=== PATIENT | male | born 1950 | race Caucasian/White ===

== ENCOUNTER → 2016-10-07 | Outpatient (CLI) | payer BC | END | disposition home or self-care (01) | LOC: LABWHC1 09:36 | PROVIDERS: ATTEND Radiology Radiation Oncology | DX: C61 Malignant neoplasm of prostate (principal) | CPT/HCPCS: 36415; 84153 ==

== ENCOUNTER → 2016-11-07 | Outpatient (CLI) | payer BC ==
--- NOTE | 2016-11-07 12:35 | CONS ---
DATE OF CONSULTATION: 11/07/2016 CONSULTATION/NEW PATIENT EVALUATION: A 65-year-old gentleman who has been evaluated in the Sleep Center for obstructive sleep apnea-hypopnea syndrome. HISTORY OF PRESENT ILLNESS/SLEEP-WAKE EVALUATION: Patient has history of obstructive sleep apnea for about 15 years. He is using his BiPAP treatment every night for the whole night. Last test was done around 4 years ago. SLEEP SCHEDULE: At the present time, his sleep schedule from around 10 p.m. until 7 a.m. FALLING ASLEEP: Usually no problem with the falling asleep. DURING SLEEP: According to his , even while he is using machine at night, he has snoring and possible episodes of stopped breathing during sleep. He usually wakes up at 5 during the night, presently he does not need to go to the bathroom at night. Patient has sometimes kicking during the sleep according to his . DURING THE DAY/WAKE STATE: In the morning, patient wakes up tired, falling asleep during the day. [place] Sleepiness Scale significantly increased to 15. PAST MEDICAL HISTORY: Positive for prostate CA treated by radiation and then by radiation implants in June of 2016, hypertension, acid reflux, hyperlipidemia, restless leg syndrome, hypothyroidism. PAST SURGICAL HISTORY: Tonsillectomy, right knee endoscopic surgery, insertion of radioactive implants to prostate. MEDICATIONS: Citalopram, levothyroxine, Nexium, Ecotrin, vitamin B12, lisinopril, atorvastatin, potassium supplement. SOCIAL HISTORY: Negative for smoking, alcohol consumption, a glass of wine with dinner. REVIEW OF SYSTEMS: Snoring, awakenings from sleep, sleepiness during the day even while using his BiPAP equipment. FAMILY HISTORY: Hypertension, heart problems, hyperlipidemia, stroke, tracheobronchitis, sleep apnea, snoring, cancer, acid reflux, thyroid problems, restless legs. PHYSICAL EXAM: A pleasant 65-year-old gentleman without distress. BP 168/79, HR 94, RR 16. Height 5, 10. Weight 266. BMI 38.1. Neck 17-1/2 inches in circumference. Temperature 98.7. Oxygen saturation at room air 96%. Oropharynx extremely low position of soft palate, retrognathic 1 to 2 mm. ABDOMEN: Obese. EXTREMITIES: ( ) IMPRESSION: 1. Obstructive sleep apnea-hypopnea syndrome for 15 years, presently on treatment with BiPAP but has snoring, witnessed episodes of stopped breathing and awakenings from sleep and sleepiness. 2. Low position of soft palate, retrognathic. 3. Obesity, body mass index of 38.1. 4. Hypertension. 5. Swelling of the legs. 6. Hyperlipidemia. 7. History of prostate cancer. 8. Status post radiation therapy for prostate cancer, with external beam and with implants. 9. Status post right knee surgery. 10. Status post tonsillectomy. 11. History of restless leg syndrome. 12. Positive history of kicking at night, positive Periodic limb movement syndrome. 13. Hypothyroidism, on treatment with thyroxin supplement. PLAN: 1. CPAP, BiPAP retitration for evaluation of obstructive pressure at the present time. 2. Losing weight. 3. Sleep hygiene with regular time in bed for at least 8 hours. 4. No driving if feeling any sleepiness. 5. Losing weight. Thank you very much for referring this patient for consultation. Sincerely, Luís Hernandez MD, PhD, FAASM. Diplomat of [place] Board [employer] Medicine, Sleep Medicine Board by [place] Board [employer] Specialities [employer] Board of Internal Medicine Dividend Deposit Entry Clerk of [facility] [place]
== END | disposition home or self-care (01) ==
LOC: SLEEP 10:49
PROVIDERS: ATTEND Internal Medicine
DX: G47.33 Obstructive sleep apnea (adult) (pediatric) (principal); E66.9 Obesity, unspecified; I10 Essential (primary) hypertension; E78.5 Hyperlipidemia, unspecified; Z68.38 Body mass index [BMI] 38.0-38.9, adult; Z79.899 Other long term (current) drug therapy
CPT/HCPCS: 99211

== ENCOUNTER → 2016-12-30 | Outpatient (CLI) | payer BC | END | disposition home or self-care (01) | LOC: LABWHC1 10:03 | PROVIDERS: ATTEND Radiology Radiation Oncology | DX: C61 Malignant neoplasm of prostate (principal) | CPT/HCPCS: 36415; 84153 ==

== ENCOUNTER → 2017-02-20 | Outpatient (CLI) | payer BC ==
--- NOTE | 2017-02-20 21:44 | PN ---
DATE OF SERVICE: 02/20/2017 This patient is a 66-year-old gentleman who has been followed in the sleep center for treatment of obstructive sleep apnea/hypopnea syndrome. Recently the patient had a diagnostic sleep study and titration, and I discussed the results of his sleep tests with him and his family in detail. The patient was started on treatment with BiPAP in [employer] regimen and he feels better with the machine. He complains, although, that with his full-face mask he sometimes has a leak in the area above the nose to the eyes. [place] Sleepiness Scale is 3. I checked his machine. Usage is 30 out of 30 nights for more than 4 hours. Leak is 20 L/minute, which is acceptable. Apnea/hypopnea index reading from the machine, though, is 11.7. MEDICATIONS: 1. Citalopram. 2. Levothyroxine. 3. Nexium. 4. Ecotrin. 5. Vitamin B12. 6. Lisinopril. 7. Atorvastatin. 8. Potassium supplement. PHYSICAL EXAM: The patient is a pleasant 66-year-old gentleman without distress. VITAL SIGNS: Blood pressure 139/67, heart rate 94, respiratory rate 16. Weight 270. Temperature 98.4. Oxygen saturation at room air 95%. GENERAL: A pleasant patient without distress. HEENT: PERRLA. EOMI. Evaluation of oropharynx showed tongue protrudes midline. Low position of soft palate. NECK: Supple. No JVD. Thyroid is not palpable. LUNGS: Clear to percussion and to auscultation. Good air exchange. No wheezing or rhonchi. HEART: S1, S2 regular. No murmurs, gallops or rubs. ABDOMEN: Obese. EXTREMITIES: No clubbing or cyanosis. QUALITY CONTROL OPERATOR: Awake, alert and oriented x3. Cranial nerves 2 through 7 are intact. There is no fasciculation or atrophy noted. No focal deficits observed. IMPRESSION: 1. Severe obstructive sleep apnea/hypopnea syndrome; apnea/hypopnea index 66.7 with oxygen desaturation to 74% by results of home sleep apnea test, improved with treatment with positive air pressure. Apnea/hypopnea index reduced to 11.7. Patient feels better, but he has some leak from the mask. Compliance with treatment 100%. Benefitting from treatment. 2. Obesity. 3. Hypertension. 4. Hyperlipidemia. 5. History of prostate carcinoma. 6. History of restless legs. 7. Mild PLMS. PLAN: 1. Patient was fitted with AmaraView mask. He likes it. I signed a prescription for this type of mask. 2. Continue to use PAP equipment every night for the whole night. 3. Losing weight. 4. Preferable position during sleep is on the side. 5. No driving if feeling any sleepiness. 6. Follow-up visit in about 2 months to evaluate clinical response on these changes of the mask and to check AHI. Thank you very much for allowing me to participate in the management of your patient. Sincerely, Luís Hernandez. , PhD, FAASM. Diplomat of [place] Board [employer] Medicine, Sleep Medicine Board by [employer] [employer] Specialities [employer] Board of Internal Medicine Credit Risk Analytics Manager of [facility] [place] [facility]
== END | disposition home or self-care (01) ==
LOC: SLEEP 13:21
PROVIDERS: ATTEND Internal Medicine
DX: G47.33 Obstructive sleep apnea (adult) (pediatric) (principal); E66.9 Obesity, unspecified; I10 Essential (primary) hypertension; E78.5 Hyperlipidemia, unspecified; G47.61 Periodic limb movement disorder; Z85.46 Personal history of malignant neoplasm of prostate

== ENCOUNTER → 2017-05-05 | Outpatient (CLI) | payer BC | END | disposition home or self-care (01) | LOC: LABWHC1 09:36 | PROVIDERS: ATTEND Radiology Radiation Oncology | DX: C61 Malignant neoplasm of prostate (principal) | CPT/HCPCS: 36415; 84153 ==

== ENCOUNTER 2017-08-05 08:11 | Day surgery (SDC) | payer BC ==
[2017-08-04 08:57] VITALS: BMI 35.7
[~2017-08-05 08:11] MED LIST: LACTATED RINGERS 1,000 ML IV SCH; LIDOCAINE 1% 20 ML VIAL (10MG/ML) FOR IV START INTRADERMA PRN
[2017-08-05 08:43] VITALS: TEMP 97.9
[2017-08-05] MEDS ORDERED: PROPOFOL 10 MG/ML 20 ML VIAL IV ONE (09:01)
[2017-08-05] MEDS ORDERED: LIDOCAINE 1% INJ 10MG/ML (20 ML MDV) ONE (09:01)
--- NOTE | 2017-08-05 09:05 | P.GSHP ---
History of Present Illness H&P Date: 08/05/17 Chief Complaint: GERD, screening colonoscopy Assistants 66-year-old male referred from Dr. Bear Duncan. Patient presents today for EGD and colonoscopy. He's had history is GERD with Rao's esophagitis. Past Medical History Past Medical History: Cancer, GERD/Reflux, Hyperlipidemia, Hypertension, Sleep Apnea/CPAP/BIPAP, Thyroid Disorder Additional Past Medical History / Comment(s): BI-PAP MACHINE, BARRETTS ESOPHAGUS , HERNIATED DISC WITH OCCASIONAL SCIATICA, HYPOTHYROID, PROSTATE CANCER WITH RADIATION [place] (JUN 2016)., STATES PROSTATE STILL ENLARGED. History of Any Multi-Drug Resistant Organisms: None Reported Past Surgical History: Adenoidectomy, Tonsillectomy Additional Past Surgical History / Comment(s): PROSTATE BRACHYTHERAPY Past Anesthesia/Blood Transfusion Reactions: No Reported Reaction, Motion Sickness Past Psychological History: Anxiety Smoking Status: Never smoker Past Alcohol Use History: Daily Additional Past Alcohol Use History / Comment(s): 2 GLASSES OF WINE DAILY Past Drug Use History: None Reported - Past Family History Mother Family Medical History: No Reported History Medications and Allergies Home Medications Medication Instructions Recorded Confirmed Type Aspirin EC [Ecotrin] 81 mg PO DAILY 10/15/15 08/04/17 History Atorvastatin [Lipitor] 10 mg PO W/SUPPER 10/15/15 08/04/17 History Citalopram Hydrobromide [CeleXA] 20 mg PO W/SUPPER 10/15/15 08/04/17 History Cyanocobalamin [Vitamin B-12] 500 mcg PO W/SUPPER 10/15/15 08/04/17 History Esomeprazole Magnesium [NexIUM] 40 mg PO W/SUPPER 10/15/15 08/04/17 History Levothyroxine Sodium [Synthroid] 88 mcg PO W/SUPPER 10/15/15 08/04/17 History Lisinopril [Prinivil] 10 mg PO W/SUPPER 10/15/15 08/05/17 History Allergies Allergy/AdvReac Type Severity Reaction Status Date / Time No Known Allergies Allergy Verified 08/04/17 08:46 Surgical - Exam Vital Signs Temp Pulse Resp BP Pulse Ox 97.9 F 85 18 163/95 96 08/05/17 08:40 08/05/17 08:40 08/05/17 08:40 08/05/17 08:40 08/05/17 08:40 - General well developed, no distress - Eyes PERRL - ENT normal pinna - Neck no masses - Respiratory normal expansion - Cardiovascular Rhythm: regular - Abdomen Abdomen: soft, non tender Assessment and Plan Assessment: GERD. We'll perform EGD. We'll also perform screening colonoscopy.
[2017-08-05 09:33] VITALS: RESP 14
--- NOTE | 2017-08-05 09:34 | P.OP ---
Date of Procedure: 08/05/17 Preoperative Diagnosis: GERD Screening colonoscopy Postoperative Diagnosis: Antral gastritis Small sliding hiatal hernia Mild esophagitis Sigmoid colon polyp Diverticulosis Transverse colon polyp Procedure(s) Performed: EGD Colonoscopy Anesthesia: MAC Surgeon: Willie Grady Pathology: other (Antrum, esophagus, sigmoid colon polyp, transverse colon polyp ) Condition: stable Disposition: PACU Description of Procedure: The patient's placed on the endoscopy table in the lateral position. He received IV sedation. The gastroscope placed oropharynx and passed into the esophagus into the wound. The scope was then placed through the pylorus. The first second portion of the duodenum appeared normal. Scope was then brought back the antrum and this appeared mildly inflamed. A biopsies was performed. Scope was unretroflexed and remainder of the stomach appeared normal. There was a small hiatal hernia. The GE junction was at 38 cm. The distal esophagus appeared mildly inflamed a biopsy performed. The proximal esophagus appeared normal. The scope was withdrawn for patient. Next digital rectal exam was performed which revealed no arthralgias. The flexible colonoscope was then placed patient anus passed throughout the entire colon. The ileocecal valve was visualized. The cecum, ascending colon appeared normal. In the transverse colon or significant diverticular changes. There was a small polyp seen was removed the cold forcep. Scope was then withdrawn in the descending colon had extensive diverticular changes. In the sigmoid colon there is peduncular polyp and this is removed with snare. Scope was then brought back the rectum and this appeared normal. Scope was withdrawn for patient.
[2017-08-05 10:23] VITALS: BP 135/92; PULSE 77
== END 2017-08-05 10:23 | disposition home or self-care (01) ==
LOC: ORWHC2ENDO 08:11
PROVIDERS: ATTEND Surgery
DX: Z12.11 Encounter for screening for malignant neoplasm of colon (principal); K29.50 Unspecified chronic gastritis without bleeding; D12.5 Benign neoplasm of sigmoid colon; K63.5 Polyp of colon; K44.9 Diaphragmatic hernia without obstruction or gangrene; K57.30 Diverticulosis of large intestine without perforation or abscess without bleeding; K22.70 Barrett's esophagus without dysplasia; K21.9 Gastro-esophageal reflux disease without esophagitis; I10 Essential (primary) hypertension; E78.5 Hyperlipidemia, unspecified; E03.9 Hypothyroidism, unspecified; G47.33 Obstructive sleep apnea (adult) (pediatric); Z99.89 Dependence on other enabling machines and devices; Z85.46 Personal history of malignant neoplasm of prostate; Z92.3 Personal history of irradiation; N40.0 Benign prostatic hyperplasia without lower urinary tract symptoms; F41.9 Anxiety disorder, unspecified; Z79.82 Long term (current) use of aspirin; Z79.899 Other long term (current) drug therapy
CPT/HCPCS: 88305; 88342; 45380; 45385; 43239; J2001; J2704

== ENCOUNTER → 2017-09-15 | Outpatient (CLI) | payer BC | END | disposition home or self-care (01) | LOC: LABWHC1 09:37 | PROVIDERS: ATTEND Radiology Radiation Oncology | DX: C61 Malignant neoplasm of prostate (principal) | CPT/HCPCS: 36415; 84153 ==

== ENCOUNTER → 2017-11-13 | Outpatient (CLI) | payer BC ==
--- NOTE | 2017-11-13 16:46 | SFUN ---
SLEEP CENTER FOLLOW UP NOTE DATE OF SERVICE: 11/13/2017. 66-year-old gentleman has been followed in Sleep Center for treatment of obstructive sleep apnea-hypopnea syndrome. The patient continues successfully to use his BiPAP equipment and sleeps with that for the whole night without snoring. [place] Sleepiness Scale today is only 4. I checked his BiPAP unit. He is on automatic regimen. The minimal expiratory pressure 7, maximal inspiratory pressure 24 with pressure support of 4, most of the time pressure in the range of 21/17 with this regimen. Leak is up to 20 L/minute which is acceptable. Apnea-hypopnea index is only 4.3, which is totally normal. On one of the previous visits, it was in the range of 11.7 before I adjusted his machine and he is using equipment 100% of the night for more than 4 hours, average 8.5 hours. MEDICATIONS: Citalopram, levothyroxine, Nexium, Ecotrin, lisinopril, atorvastatin, vitamin B12, potassium supplement. PHYSICAL EXAM: GENERAL Patient in no distress. VITAL SIGNS BP 139/64, HR 74, RR 16, height 5 feet 10 inches, weight 264, BMI 37.8, temperature 98.4, oxygen saturation room air 95%. HEENT PERRLA, EOMI, evaluation of oropharynx showed low position of soft palate. NECK Supple, no JVD. Thyroid is not palpable. LUNGS Clear to percussion and to auscultation. Good air exchange. No wheezing or rhonchi. HEART S1, S2 regular. No murmurs, gallops, or rubs. ABDOMEN Obese. Soft and nontender. Bowel sounds are present. No organomegaly appreciated. EXTREMITIES No clubbing or cyanosis. IMPORTER EXPORTER Awake, alert, and oriented X3. Cranial nerves 2 to 7 intact. There is no fasciculation or atrophy. noted. No focal deficits observed. IMPRESSION: 1. Severe obstructive sleep apnea-hypopnea syndrome; apnea-hypopnea index 66.7 with O2 desaturation to 74% on control with BiPAP. The patient demonstrated 100% compliance with treatment benefitting with treatment. 2. Hypertension. 3. Obesity. 4. History of swelling of the legs. 5. Hyperlipidemia. 6. History of prostate carcinoma. 7. History of restless legs. No any significant problems now. 8. Mild periodic limb movements by results of sleep studies. PLAN: 1. The patient will continue to use his BiPAP equipment every night with the same regimen. 2. Losing weight. 3. Sleep hygiene with time bed for at least 8 hours. 4. No driving if feeling sleepiness. 5. We will maintain prescription for all necessary BiPAP supplies. 6. Followup visit in 1 year or earlier if patient has any problems. Thank you very much for allowing me to participate in management of your patient. Sincerely, Luís Hernandez MD, PhD, FAASM Diplomat of [employer] Board of Medical Specialties Sudan[employer] Board of Internal Medicine Band Sawmill Operator of [facility] [place] MMODL / IJN: [id number] /
== END | disposition home or self-care (01) ==
LOC: SLEEP 15:15
PROVIDERS: ATTEND Internal Medicine
DX: G47.33 Obstructive sleep apnea (adult) (pediatric) (principal); G47.61 Periodic limb movement disorder; I10 Essential (primary) hypertension; E66.9 Obesity, unspecified; E78.5 Hyperlipidemia, unspecified; Z85.46 Personal history of malignant neoplasm of prostate; Z87.2 Personal history of diseases of the skin and subcutaneous tissue; Z99.89 Dependence on other enabling machines and devices; Z79.899 Other long term (current) drug therapy; Z68.37 Body mass index [BMI] 37.0-37.9, adult

== ENCOUNTER → 2018-01-13 | Outpatient (CLI) | payer BC | END | disposition home or self-care (01) | LOC: LABWHC1 09:02 | PROVIDERS: ATTEND Radiology Radiation Oncology | DX: C61 Malignant neoplasm of prostate (principal) | CPT/HCPCS: 36415; 84153 ==

== ENCOUNTER → 2018-05-18 | Outpatient (CLI) | payer BC | END | disposition home or self-care (01) | LOC: LABWHC1 08:36 | PROVIDERS: ATTEND Radiology Radiation Oncology | DX: C61 Malignant neoplasm of prostate (principal) | CPT/HCPCS: 36415; 84153 ==

== ENCOUNTER → 2018-11-16 | Outpatient (CLI) | payer BC | LOC: LABWHC1 10:09 | PROVIDERS: ATTEND Radiology Radiation Oncology | DX: C61 Malignant neoplasm of prostate (principal); Z92.3 Personal history of irradiation | CPT/HCPCS: 36415; 84153 ==

== ENCOUNTER → 2018-11-26 | Outpatient (CLI) | payer BC ==
--- NOTE | 2018-11-26 12:01 | SFUN ---
SLEEP CENTER FOLLOW UP NOTE DATE OF SERVICE: 11/26/2018 A 67-year-old gentleman who has been followed in the Sleep Center for treatment of obstructive sleep apnea-hypopnea syndrome. Patient continued to use his BiPAP equipment every night, sometimes has mild discomfort with his mask. [place] Sleepiness Scale today is 5. I checked his BiPAP unit. He is at the same regimen of last year with the maximal IPAP 24, minimal EPAP 7 with a pressure support of 4. Usually, the pressure in the machine in the range of 20/16. Usage is 29/30 nights per month and 28/30 nights per month more than 4 hours with average usage 7.5 hours, which is great compliance. Leak is 34 L/minute which is borderline for a full-face mask. Patient is using Danita View mask. Apnea-hypopnea index reading for the last month is 4.2, which is in normal range, for the last night 3.1. MEDICATIONS: Citalopram, levothyroxine, Nexium, Ecotrin, lisinopril, atorvastatin, vitamin B12. PHYSICAL EXAM: Patient in no distress. BP 156/96, HR 90, RR 18, height 5 foot 10, weight 263, temperature 98.2. OROPHARYNX: Low position of soft palate. Neck Supple, no JVD. Thyroid is not palpable. LUNGS Clear to percussion and to auscultation. Good air exchange. No wheezing or rhonchi. HEART S1, S2 regular. No murmurs, gallops, or rubs. ABDOMEN Soft and nontender. Bowel sounds are present. No organomegaly appreciated. EXTREMITIES No clubbing or cyanosis. WILD ANIMAL CARETAKER Awake, alert, and oriented X3. Cranial nerves 2 to 7 intact. There is no fasciculation or atrophy. noted. No focal deficits observed. IMPRESSION: 1. Severe obstructive sleep apnea-hypopnea syndrome, apnea-hypopnea index 66.7 with oxygen desaturation to 74% on control with BiPAP. Patient demonstrated great compliance with treatment, benefitting from treatment. 2. Hypertension. 3. Obesity. 4. Hyperlipidemia. 5. History of prostate CA. Status post surgical treatment and radiation treatment. 6. History of restless legs in the past. No significant problems now. PLAN: 1. Patient will continue to use BiPAP equipment every night for the whole night. 2. Watching and losing weight. 3. Sleep hygiene with regular time in bed for at least 7-1/2 to 8 hours. 4. Precautions related to driving. No driving if feeling sleepiness. 5. I will maintain prescription for all necessary BiPAP supplies including a full-face mask. Presently, this is Danita View, medium-size, heated tube, filters. Thank you very much for allowing me to participate in the management of your patient. Followup visit in 1 year or earlier if patient has any problems. Sincerely, Luís Hernandez MD, PhD, FAASM Diplomat of [place] Board of Medical Specialties [place] Board of Internal Medicine Shuttle Car Operator of [facility] [place] MMODL / IJN: [id number] /
== END ==
LOC: SLEEP 10:43
PROVIDERS: ATTEND Internal Medicine
DX: G47.33 Obstructive sleep apnea (adult) (pediatric) (principal); I10 Essential (primary) hypertension; E78.5 Hyperlipidemia, unspecified; E66.9 Obesity, unspecified; Z85.46 Personal history of malignant neoplasm of prostate; Z98.890 Other specified postprocedural states; Z92.3 Personal history of irradiation; Z87.898 Personal history of other specified conditions; Z99.89 Dependence on other enabling machines and devices; Z79.899 Other long term (current) drug therapy

== ENCOUNTER → 2019-05-17 | Outpatient (CLI) | payer BC | END | disposition home or self-care (01) | LOC: LABWHC1 09:29 | PROVIDERS: ATTEND Radiology Radiation Oncology | DX: C61 Malignant neoplasm of prostate (principal); Z92.3 Personal history of irradiation | CPT/HCPCS: 36415; 84153 ==

== ENCOUNTER → 2020-05-22 | Outpatient (CLI) | payer BC | END | disposition home or self-care (01) | LOC: LABWHC1 10:10 | PROVIDERS: ATTEND Radiology Radiation Oncology | DX: C61 Malignant neoplasm of prostate (principal); Z92.3 Personal history of irradiation | CPT/HCPCS: 36415; 84153 ==

== ENCOUNTER → 2020-10-19 | Outpatient (CLI) | payer BC ==
--- NOTE | 2020-10-19 11:47 | SFUN ---
SLEEP CENTER FOLLOW UP NOTE DATE OF SERVICE: 10/19/2020 This 69-year-old gentleman has been followed in Sleep Center for treatment of obstructive sleep apnea-hypopnea syndrome. The patient continued to use his BiPAP equipment every night, sometimes has problems with sleep at the present time because recently he lost his and psychologically does not feel well. The [place] Sleepiness Scale today is 7. I checked his BiPAP unit. Its maximal inspiratory pressure 24, minimal expiratory pressure 7, pressure support is 4. Airways BiPAP pressure 17.3/13.3. Leak is 47 L/minutes which is high. Usage 29 out of 30 nights for more than 4 hours with average usage 9.6 hours per night. Apnea-hypopnea index is 6.7. During the previous visit, it was 3.4. During previous visit, leak was only 8 L/minute. I checked the patient's mask. He is using Danita View medium size, but the mask looks old, needs to be replaced that could be the reason for leak and subsequently slightly increasing apnea-hypopnea index. Recently patient had been diagnosed with Parkinson disease. MEDICATIONS: Citalopram 20 mg once a day, Ecotrin 81 mg once a day, Nexium 40 mg once a day, lisinopril 10 mg once a day, atorvastatin 10 mg once a day, carvedilol 6.25 mg once a day, carbidopa 10-100 mg 3 times a day. PHYSICAL EXAMINATION: GENERAL: Patient in no distress. VITAL SIGNS: BP 152/89, HR 81, RR 15, height 5 feet 11 inches, weight 252.2, body mass index 35.1. No significant changes comparing to the previous visit. Temperature 97.6, oxygen saturation at room air 97%. HEENT: PERRLA, EOMI. Oropharynx low position of soft palate. NECK: Supple, no JVD. Thyroid is not palpable. LUNGS: Clear to percussion and to auscultation. Good air exchange. No wheezing or rhonchi. HEART: S1, S2 regular. No murmurs, gallops, or rubs. ABDOMEN: Soft and nontender. Bowel sounds are present. No organomegaly appreciated. EXTREMITIES: No clubbing or cyanosis. STEREO COMPILER: Awake, alert, and oriented x3. Cranial nerves 2 to 7 intact. No focal deficit observed. IMPRESSION: 1. Obstructive sleep apnea-hypopnea syndrome. Patient demonstrated great compliance with treatment, benefitting from treatment. 2. Recently diagnosed with Parkinson disease. 3. Hypertension. 4. Obesity. 5. Hyperlipidemia. 6. History of prostate carcinoma, status post surgical treatment and radiation treatment. 7. History of restless legs in the past. No present problems. PLAN: 1. The patient should replace his mask immediately. 2. Patient will continue to use PAP equipment every night for the whole night. 3. Sleep hygiene with regular time in bed for at least 7-1/2 to 8 hours. 4. Precautions related to driving. No driving if feeling sleepiness. 5. Prescription for all necessary PAP supplies today including mask, tube, filters. 6. Watching weight. 7. Follow-up visit in 6 months or earlier if patient has any problems. 8. Monitoring blood pressure, low-sodium diet. Thank you very much for allowing me to participate in management of your patient. Sincerely, Luís Hernandez MD, PhD, FAASM Diplomat of [employer] Board of Medical Specialties [employer] Board of Internal Medicine Equipment Operating Engineer of [facility] [place] MMODL / SUKHIN: [id number] /
== END ==
LOC: SLEEP 10:02
PROVIDERS: ATTEND Internal Medicine
DX: G47.33 Obstructive sleep apnea (adult) (pediatric) (principal); G20 Parkinson's disease; I10 Essential (primary) hypertension; E66.9 Obesity, unspecified; Z68.35 Body mass index [BMI] 35.0-35.9, adult; E78.5 Hyperlipidemia, unspecified; Z85.46 Personal history of malignant neoplasm of prostate; Z98.890 Other specified postprocedural states; Z51.0 Encounter for antineoplastic radiation therapy; Z87.39 Personal history of other diseases of the musculoskeletal system and connective tissue; Z99.89 Dependence on other enabling machines and devices

== ENCOUNTER → 2021-04-26 | Outpatient (CLI) | payer MEDICARE ==
--- NOTE | 2021-04-26 19:08 | SFUN ---
SLEEP CENTER FOLLOW UP NOTE DATE OF SERVICE: 04/26/2021 This 70-year-old gentleman has been followed in Sleep Center for treatment of obstructive sleep apnea-hypopnea syndrome. The patient continues to use his BiPAP equipment every night, and according to the patient, he sleeps well with the machine. Sometimes he may have episodes of possibly snoring. The patient did not bring his machine with him today. [place] Sleepiness Scale is slightly increased to 10. MEDICATIONS: 1. Citalopram 20 mg once a day. 2. Levothyroxine 88 mcg once a day. 3. Ecotrin 81 mg once a day. 4. Lisinopril 10 mg once a day. 5. Atorvastatin 10 mg once a day. 6. Carvedilol 6.25 mg once a day. 7. Carbidopa 10-100 mg 3 times a day. 8. Supplement Centrum Silver. vitamin B12. PHYSICAL EXAMINATION: GENERAL: Pleasant patient in no distress. VITAL SIGNS: BP 161/84, HR 77, RR 15, height 5 feet 10 inches, weight 238.2, body mass index 34.1, temperature 96.7, oxygen saturation at room air 96%. HEENT: PERRLA, EOMI, evaluation of oropharynx showed tongue protrudes midline. Low position of soft palate. NECK: Supple, no JVD. Thyroid is not palpable. LUNGS: Clear to percussion and to auscultation. Good air exchange. No wheezing or rhonchi. HEART: S1, S2 regular. No murmurs, gallops, or rubs. ABDOMEN: Soft and nontender. Bowel sounds are present. No organomegaly appreciated. EXTREMITIES: No clubbing or cyanosis. ELECTRON BEAM WELDING MACHINE OPERATOR: Awake, alert, and oriented X3. No focal deficit observed. IMPRESSION: 1. Obstructive sleep apnea-hypopnea syndrome. The patient continues to use his CPAP equipment, benefitting from treatment. 2. Patient diagnosed with Parkinson's disease. 3. Hypertension. 4. Obesity. BMI 34.1. 5. Hyperlipidemia. 6. History of prostate carcinoma, status post surgical treatment and radiation treatment. 7. History of restless legs in the past. No present complaints. PLAN: 1. We will get information about usage of CPAP unit, apnea-hypopnea index and leak. 2. Patient will continue to use CPAP equipment every night. 3. Prescription for all necessary supplies. 4. No driving if feeling sleepiness. 5. Following plan will depend on results of reading information from his machine. The patient presented papers that he designated his Fartun Donaldsonller as power of attorney lawyer for the patient. Thank you very much for allowing me to participate in the management of your patient. Sincerely, Luís Hernandez MD, PhD, FAASM Diplomat of [employer] Specialties Sleep Medicine Board of [employer] Board of Internal Medicine Grape Pruner of [facility] [place] MMODL / SUKHIN: [id number] /
== END | disposition home or self-care (01) ==
LOC: SLEEP 11:29
PROVIDERS: ATTEND Internal Medicine
DX: G47.33 Obstructive sleep apnea (adult) (pediatric) (principal); G20 Parkinson's disease; I10 Essential (primary) hypertension; E66.9 Obesity, unspecified; Z68.34 Body mass index [BMI] 34.0-34.9, adult; E78.5 Hyperlipidemia, unspecified; Z85.46 Personal history of malignant neoplasm of prostate

== ENCOUNTER → 2021-10-25 | Outpatient (CLI) | payer MEDICARE ==
--- NOTE | 2021-10-25 15:06 | SFUN ---
SLEEP CENTER FOLLOW UP NOTE DATE OF SERVICE: 10/25/2021 70-year-old gentleman has been followed in Sleep Center for treatment of obstructive sleep apnea-hypopnea syndrome. The patient continues to use his BiPAP equipment every night. No snoring with the machine. He is getting his supplies in time. I checked his BiPAP unit and the air filter is in very bad shape. Maximal inspiratory pressure 24, minimal expiratory pressure 7, pressure support 4. Average BiPAP pressure 20.8/16.8. Usage is 30/30 nights for more than 4 hours, average 10.1 hours per night. Leak is 25 L/minute, which is borderline. Apnea-hypopnea index slightly increased to 6.9. Apnea-hypopnea index for the last night 4.9, which is in normal range. CURRENT MEDICATIONS: Celexa 20 mg once a day, Synthroid 88 mcg once a day, Nexium 40 mg once a day, amlodipine/benazepril 5-20 mg once a day, atorvastatin 10 mg once a day, carvedilol 6.25 mg once a day, carbidopa/levodopa 25-100 mg 3 times a day, poly vitamins, vitamin D3, vitamin B12. PHYSICAL EXAMINATION: GENERAL: gentleman without distress. BP 142/78, HR 91, RR 16, weight 233 pounds, height 5 feet 10 inches, temperature 97.1, oxygen saturation at room air 96%. Oropharynx: Low position of soft palate. NECK: Supple, no JVD. Thyroid is not palpable. LUNGS: Clear to percussion and to auscultation. Good air exchange. No wheezing or rhonchi. HEART: S1, S2 regular. No murmurs, gallops, or rubs. ABDOMEN: Slightly obese. Soft and nontender. Bowel sounds are present. No organomegaly appreciated. EXTREMITIES: No clubbing or cyanosis. S[employer]IOR [employer]: Awake, alert, and oriented X3. No focal deficits observed. IMPRESSION: 1. Obstructive sleep apnea-hypopnea syndrome. Patient demonstrated 100% compliance with BiPAP therapy, benefitting from treatment. 2. History of Parkinson's disease. 3. Hypertension. 4. Obesity. 5. Hyperlipidemia. 6. History of prostate carcinoma, status post surgical treatment and radiation therapy. 7. History of restless legs in the past. No present complaints. PLAN: 1. Change air filter immediately. It is in very bad shape. 2. Patient will continue to use PAP equipment every night for the whole night. 3. Sleep hygiene with regular time in bed for at least 7-1/2 to 8 hours. 4. Precautions related to driving. No driving if feeling sleepiness. 5. I will maintain all necessary prescription for PAP supplies including mask, tube, filters. 6. Watching weight. 7. Follow-up visit in 6 months or earlier if patient has any problems. Thank you very much for allowing me to participate in management of your patient. Sincerely, Luís Hernandez MD, PhD, FAASM Diplomat of [employer] [employer] Sleep Medicine Board of [employer] [employer] [facility] [place] MMODL / IJN: [id number] /
== END | disposition home or self-care (01) ==
LOC: SLEEP 10:55
PROVIDERS: ATTEND Internal Medicine
DX: G47.33 Obstructive sleep apnea (adult) (pediatric) (principal); I10 Essential (primary) hypertension; E66.9 Obesity, unspecified; E78.5 Hyperlipidemia, unspecified; Z86.69 Personal history of other diseases of the nervous system and sense organs; Z85.46 Personal history of malignant neoplasm of prostate

== ENCOUNTER → 2022-05-23 | Outpatient (CLI) | payer MEDICARE ==
--- NOTE | 2022-05-23 11:16 | P.PN ---
Subjective DATE: 05/23/2022 FOLLOW UP VISIT. Patient with obstructive sleep apnea hypopnea syndrome return to sleep center for follow-up visit. Information from previous visit have been reviewed. Patient is using BPAP equipment every night for the whole night, getting BPAP supplies in time. The patient does not have significant problems with the mask, BPAP unit and humidification. One week ago dog bite his BPAP mask. [place] sleepiness scale is 2, which is perfect. I checked BPAP unit. BPAP unit pressure maximal inspiratory pressure 24, minimal expiratory pressure 7, pressure-support 4, average pressure 19.4 over 15.4 cm H2O. Usage is 100 % for more then 4 hours, average 10 hours per night. Leak is 0 l/m, which is perfect . Apnea Hypopnea Index is 4.2, which is normal. MEDICATIONS:1. Celexa 20 mg once a day 2. Synthroid 88 g once a day 3. Nexium 40 mg once a day 4. Amlodipinebenazepril 5/20 mg once a day 5. Atorvastatin 10 mg once a day 6. Carvedilol 6.25 mg once a day 7. Carbidopa/ levodopa 25/100 milligrams 3 times a day 8. Vitamins During physical exam: GENERAL: A pleasant patient without any distress. VITAL SIGNS: BP 171/92, HR 98, RR 16 , weight 215, height 5 foot 9 inches, body mass index 31.2, temperature 98.5, oxygen saturation at room air 96 % . HEENT: PERRLA, EOMI.low position of soft palate, Mall[place]ati 3 . NECK: Supple. No JVD. LUNGS: Clear to percussion and to auscultation. Good air exchange. No wheezing or rhonchi. HEART: S1, S2 regular. ABDOMEN: Soft and nontender.[] EXTREMITIES: No clubbing or cyanosis. BELLHOP: Awake, alert, and oriented x3. No focal deficit. Impressions: 1. Obstructive sleep apnea-hypopnea syndrome. Patient demonstrated great compliance with treatment, benefiting from treatment. Mask needs to be replaced immediately. 2. Parkinson's disease. 3. Hypertension. 4. Hyperlipidemia. 5. History of prostate CA status post surgical and radiation treatment. 6. History of restless legs in the past. No complaints of the present time. 7. Very mild obesity, body mass and is 31.2. Plan: 1. Continue using PAP equipment every night for the whole night. 2. To change air filter at least 1-2 times per month. 3. PAP unit should stay lower then position of the head. 4. Advised patient to remove all remaining water from humidifier canister daily and make it dry after each usage. Refill canister with fresh distilled water before each usage. 5. Sleep hygiene with regular time in bed for at least 8 hours. 6. Precautions related to driving. No driving if feel any sleepiness. 7. I will maintain prescription for PAP supplies including mask, tube, filters. Prescription written and sent a [employer] 8. Follow up visit in 6 months or earlier if patient has any problems. 9. Watching weight. Thank you very much for allowing me to participate in the management of your patient. Luís Hernandez MD, PhD, FAASM. Diplomat of [place] [employer], Sleep Medicine Board by [place] [employer] [facility] [place]
== END ==
LOC: SLEEP 10:33
PROVIDERS: ATTEND Internal Medicine
DX: G47.33 Obstructive sleep apnea (adult) (pediatric) (principal); G20 Parkinson's disease; I10 Essential (primary) hypertension; E78.5 Hyperlipidemia, unspecified; G25.81 Restless legs syndrome; E66.9 Obesity, unspecified; Z68.31 Body mass index [BMI] 31.0-31.9, adult; Z85.46 Personal history of malignant neoplasm of prostate; Z99.89 Dependence on other enabling machines and devices
CPT/HCPCS: 99212